=== PATIENT | male | born 1990 | race Caucasian/White ===

== ENCOUNTER 2018-10-25 01:00 | Emergency (ER) | payer SELFPAY ==
[~2018-10-25] VITALS: Ht 170.2 cm; Wt 79.4 kg
[2018-10-25 01:04] VITALS: BP 148/88
--- NOTE | 2018-10-25 01:04 | NUR ---
ED Nurse Note:. PT BIBA 861 D/T POSSIBLE ALOCHOL WITHDRAWAL. PT STATES HIS LAST DRINK WAS AT 0630. PT SHOWS SLIGHT TREMOR IN HANDS. PT ANXIOUS, AND SAYS "I DONT FEEL NORMAL". PT DENIES AUDITORY OR VISUAL HALLUCINATIONS
--- NOTE | 2018-10-25 01:29 | Emergency Room Report ---
History of Present Illness General Chief Complaint: Alcohol Intoxication Source: Patient Present Illness HPI Is a 28-year-old male who is an alcoholic. He presents with chief complaint of abdominal pain and withdrawal symptoms. He said that he drinks every day. He has not had a drink for over 12 hours. He went to the store to get some juice. As he was leaving the store he felt jittery and said he felt abdominal pain. Pain is sharp and crampy. He has nausea but no vomiting. No diarrhea. He called 911. No fever chills. no trauma. No suicidal thoughts or homicidal thought. Allergies: Coded Allergies: AZITHROMYCIN (Verified Allergy, Unknown, 10/25/18) Patient History Past Medical History: see triage record, old chart reviewed Past Surgical History: none Pertinent Family History: none Social History: Reports: alcohol use Immunizations: other Reviewed Nursing Documentation: PMH: Agreed; PSxH: Agreed Nursing Documentation-PM Past Medical History: No History, Except For History Of Psychiatric Problem: Yes - ANXIETY Review of Systems Eye: Denies: eye pain, blurred vision ENT: Denies: ear pain, nose congestion, throat swelling Respiratory: Denies: cough, shortness of breath Cardiovascular: Denies: chest pain, palpitations Gastrointestinal: Reports: abdominal pain, nausea, vomiting; Denies: diarrhea Musculoskeletal: Denies: back pain, joint pain Skin: Denies: rash Neurological: Denies: headache, numbness Endocrine: Denies: increased thirst, increased urine Hematologic/Lymphatic: Denies: easy bruising All Other Systems: negative except mentioned in HPI Physical Exam Vital Signs Date Time Temp Pulse Resp B/P (MAP) Pulse Ox O2 Delivery O2 Flow Rate FiO2 10/25/18 01:00 97.2 108 21 148/88 (108) 100 Room Air Vitals with tachycardia Sp02 EP Interpretation: reviewed, normal General Appearance: well appearing, no apparent distress, alert Head: normocephalic, atraumatic Eyes: bilateral eye PERRL, bilateral eye EOMI ENT: hearing grossly normal, normal pharynx Neck: full range of motion, supple, no meningismus Respiratory: chest non-tender, lungs clear, normal breath sounds Cardiovascular #1: regular rate, rhythm, no murmur Gastrointestinal: no mass, no organomegaly, no bruit, non-distended, abnormal bowel sounds - hyperactive, tenderness - LUQ Musculoskeletal: back normal, gait/station normal, normal range of motion Psychiatric: mood/affect normal Medical Decision Making Diagnostic Impression: Primary Impression: Alcohol withdrawal Qualified Codes: F10.230 - Alcohol dependence with withdrawal, uncomplicated Additional Impression: Alcohol dependence Qualified Codes: F10.20 - Alcohol dependence, uncomplicated ER Course Presents with alcohol abuse and dependency. He is now in withdrawal. He felt shaky and very nervous. Better after Ativan and Librium. He not suicidal or homicidal. No criteria for 5150. Will discharge home in the morning. Last Vital Signs Date Time Temp Pulse Resp B/P (MAP) Pulse Ox O2 Delivery O2 Flow Rate FiO2 10/25/18 01:04 108 21 Room Air 10/25/18 01:04 97.2 148/88 100 Status: improved Disposition: HOME, SELF-CARE Condition: Stable Scripts Chlordiazepoxide (Chlordiazepoxide HCl) 25 Mg Capsule 25 MG ORAL THREE TIMES A DAY, #15 CAP 0 Refills Prov: Jan Santos MD 10/25/18 Patient Instructions: Alcohol Withdrawal Additional Instructions: Follow-up with rehab in 7 days. Return if symptoms worsen. Jan Santos MD Oct 25, 2018 01:29
[2018-10-25] MEDS ORDERED: LORazepam Inj 2mg/ml 1ml IV ONE (01:30)
[2018-10-25 01:37] LABS: BASOPHILS % (AUTO) 1.8 % (0.0-2.0); EOSINOPHILS % (AUTO) 3.1 % (0.0-3.0); HEMATOCRIT 42.2 % (42.0-52.0); HEMOGLOBIN 15.5 G/DL (14.2-18.0); LYMPHOCYTES % (AUTO) 33.1 % (20.0-45.0); MEAN CORPUSCULAR VOLUME 90 FL (80-99); MONOCYTES % (AUTO) 6.8 % (1.0-10.0); NEUTROPHILS % (AUTO) 55.2 % (45.0-75.0); PLATELET COUNT 253 K/UL (150-450); RED BLOOD COUNT 4.68 M/UL (4.70-6.10); WHITE BLOOD COUNT 9.6 K/UL (4.8-10.8)
[2018-10-25 01:49] LABS: ANION GAP 8 mmol/L (5-15); BLOOD UREA NITROGEN 14 mg/dL (7-18); CALCIUM 9.2 MG/DL (8.5-10.1); CARBON DIOXIDE 25 MMOL/L (21-32); CHLORIDE 101 MMOL/L (98-107); POTASSIUM 4.8 MMOL/L (3.5-5.1); SODIUM 134 MMOL/L (136-145)
[2018-10-25 01:54] LABS: ALANINE AMINOTRANSFERASE 185 U/L (12-78); ALBUMIN 3.7 G/DL (3.4-5.0); ALBUMIN/GLOBULIN RATIO 0.9 (1.0-2.7); ALKALINE PHOSPHATASE 87 U/L (46-116); ASPARTATE AMINO TRANSFERASE 94 U/L (15-37); BILIRUBIN,TOTAL 0.8 MG/DL (0.2-1.0)
[2018-10-25] MEDS ORDERED: chlordiazePOXIDE 25mg Cap ORAL ONE (02:15)
[2018-10-25] MEDS ORDERED: LIBRIUM25 MG ORAL (02:23)
[2018-10-25 02:25] LABS: APPEARANCE,URINE CLEAR; BILIRUBIN, URINE NEGATIVE (NEGATIVE); COLOR,URINE PALE YELLOW; GLUCOSE, URINE (UA) NEGATIVE (NEGATIVE); KETONES,URINE NEGATIVE (NEGATIVE); LEUKOCYTE ESTERASE ,URINE NEGATIVE (NEGATIVE); NITRITE,URINE NEGATIVE (NEGATIVE); PH,URINE 7 (4.5-8.0); PROTEIN,URINE NEGATIVE (NEGATIVE); UROBILINOGEN,URINE NORMAL MG/DL (0.0-1.0)
[2018-10-25 02:58] VITALS: BP 94/58
[2018-10-25 05:02] VITALS: BP 102/59
[2018-10-25 05:45] VITALS: BP 110/53
[2018-10-25 05:55] VITALS: BP 110/53
== END 2018-10-25 05:55 | disposition home or self-care (01) ==
LOC: EDBD 01:00 → EMR 03:45
DX: F10.230 Alcohol dependence with withdrawal, uncomplicated (principal); Z88.8 Allergy status to other drugs, medicaments and biological substances; F41.9 Anxiety disorder, unspecified
CPT/HCPCS: 36415; 80053; 80307; 81003; 83690; 85025; 96361; 96374; 99284; G0480; 80329

== ENCOUNTER 2019-01-23 00:03 | Emergency (ER) | payer MEDICAID ==
[~2019-01-23] VITALS: Ht 172.7 cm; Wt 117.9 kg
[~2019-01-23 00:03] MED LIST: LIBRIUM25 MG ORAL
--- NOTE | 2019-01-23 00:15 | NUR ---
ED Nurse Note: pt waslked in to ED for C/O pain to BLE. noted with swelling and redness. warm to touch. pt states he took tylenol around 2200 on 01/22/19. PT is alert x4.
[2019-01-23 00:17] VITALS: BP 130/80
[2019-01-23] MEDS ORDERED: Bactrim-DS 1 tab ORAL ONE (00:45)
[2019-01-23] MEDS ORDERED: Furosemide 40mg tab ORAL ONE (00:45)
[2019-01-23] MEDS ORDERED: Cephalexin 500mg cap ORAL ONE (00:45)
[2019-01-23] MEDS ORDERED: CEPHALEXIN500 M1 ORAL (00:49)
[2019-01-23] MEDS ORDERED: BACTRIM DS TAB1 EAC1 ORAL (00:49)
[2019-01-23] MEDS ORDERED: FUROSEMIDE20 M1 ORAL (00:49)
--- NOTE | 2019-01-23 00:49 | Emergency Room Report ---
History of Present Illness General Chief Complaint: Edema Source: Patient Present Illness HPI 28-year-old male history of hypertension, he states he measured some fevers at home alcohol abuse presents with bilateral lower extremity swelling x2 days, with some redness, and associated subjective fevers, greater than 100, patient is currently afebrile here, patient endorses bilateral lower extremity swelling , pain, and redness, no aggravating relieving factors severity is moderate, constant, patient wants an answer for his leg swelling, he denies any chest pain shortness of breath, patient presents for evaluation. Allergies: Coded Allergies: AZITHROMYCIN (Verified Allergy, Unknown, 10/25/18) Patient History Past Medical History: see triage record Social History: Reports: alcohol use - History of alcohol abuse Reviewed Nursing Documentation: PMH: Agreed; PSxH: Agreed Nursing Documentation-PMH Past Medical History: No Stated History Review of Systems All Other Systems: negative except mentioned in HPI Physical Exam Vital Signs Date Time Temp Pulse Resp B/P (MAP) Pulse Ox O2 Delivery O2 Flow Rate FiO2 01/23/19 00:09 98.4 84 16 134/72 (92) 100 Nasal Cannula 01/23/19 00:17 98 Sp02 EP Interpretation: reviewed, normal General Appearance: well appearing, no apparent distress, alert Head: normocephalic, atraumatic Eyes: bilateral eye PERRL, bilateral eye EOMI ENT: uvula midline, moist mucus membranes Neck: supple, thyroid normal, supple/symm/no masses Respiratory: lungs clear, no respiratory distress, no retraction, no accessory muscle use Cardiovascular #1: normal peripheral pulses, regular rate, rhythm, no edema, no gallop, no murmur Gastrointestinal: non tender, soft, no guarding, no rebound Musculoskeletal: normal inspection Neurologic: alert, oriented x3 Psychiatric: mood/affect normal Skin: warm/dry, other - Bilateral lower extremities: Mild redness, some venous insufficiency present, some redness present, [id number] ultrasound shows no cobblestoning or edema Medical Decision Making Diagnostic Impression: Primary Impression: Edema Qualified Codes: R60.9 - Edema, unspecified Additional Impression: Cellulitis Qualified Codes: L03.90 - Cellulitis, unspecified ER Course 28-year-old male presents with 2 days of redness, and swelling of the bilateral lower extremities, differential diagnosis includes water retention, venous insufficiency, cellulitis Patient with possible cellulitis will start Bactrim and Keflex, patient also with some mild swelling will attempt a trial of Lasix, counseled patient that he needs to follow-up with his PCP [id number] ultrasound shows no reduced EF , [id number] ultrasound does not show overt edema of the lower extremities, counseled patient he needs a thorough work-up, he may be at risk for cardiomyopathy given his history of alcohol abuse No acute emergencies at this time. Patient with normal vitals here, will provide double coverage, disposition home with return precautions Last Vital Signs Date Time Temp Pulse Resp B/P (MAP) Pulse Ox O2 Delivery O2 Flow Rate FiO2 01/23/19 00:17 85 18 Room Air 98 01/23/19 00:17 98.4 130/80 98 Disposition: HOME, SELF-CARE Condition: Stable Scripts Furosemide* (LASIX*) 20 Mg Tablet 20 MG ORAL DAILY, #5 TAB Prov: Jaime Walker MD 01/23/19 Cephalexin* (KEFLEX*) 500 Mg Tablet 500 MG ORAL EVERY 6 HOURS, #28 CAP Prov: Jaime Walker MD 01/23/19 Trimethoprim/Sulfamethoxazole 160/800* (BACTRIM DS TABLET*) 1 Each Tablet 1 TAB ORAL Q12H, #14 TAB 0 Refills Prov: Jaime Walker MD 01/23/19 Referrals: [facility],REFERRING (PCP) [facility]. [facility] Patient Instructions: Cellulitis, [id number], Edema, [id number] Additional Instructions: The patient was provided with discharge instructions, notified to follow-up with a primary care doctor and or specialist in the next 24-48 hours, and to return to the ED if they have worsening of their symptoms. Please note that this report is being documented using [employer] technology. This can lead to erroneous entry secondary to incorrect interpretation by the dictating instrument. Jaime Walker MD Jan 23, 2019 00:49
[2019-01-23 00:53] VITALS: BP 132/76
--- NOTE | 2019-01-23 00:53 | NUR ---
ER DISCHARGE NOTE: Patient is cleared to be discharged per ERMD, pt is aox4, on room air, with stable vital signs. pt was given dc and prescription instructions, pt was able to verbalize understanding, pt id band removed without complications. pt is able to ambulate with steady gait. pt took all belongings.
== END 2019-01-23 00:53 | disposition home or self-care (01) ==
LOC: EMR 00:22
DX: R60.9 Edema, unspecified (principal); L03.90 Cellulitis, unspecified; I10 Essential (primary) hypertension; Z88.1 Allergy status to other antibiotic agents
CPT/HCPCS: 99283; J8499